=== PATIENT | male | born 1945 | race Caucasian/White ===

== ENCOUNTER → 2016-12-12 | Outpatient (CLI) | payer MEDICARE | END | disposition home or self-care (01) | LOC: LABWHC1 08:55 | PROVIDERS: ATTEND Internal Medicine Endocrinology, Diabetes & Metabolism | DX: E10.9 Type 1 diabetes mellitus without complications (principal) | CPT/HCPCS: 36415; 82947; 84681 ==

== ENCOUNTER → 2017-05-30 | Outpatient (CLI) | payer MEDICARE ==
[2017-05-30 09:25] LABS: CH 29.7; CHCM 33.2; HCT 38.8 % (39.0-53.0); HDW 2.49; MCH 30.1 pg (25.0-35.0); MCHC 33.5 g/dL (31.0-37.0); MCV 89.9 fL (80.0-100.0); Mean Platelet Volume 7.4; RBC 4.31 m/uL (4.30-5.90); RDW 13.7 % (11.5-15.5); WBC 6.2 k/uL (3.8-10.6)
[2017-05-30 10:28] LABS: ALT 28 U/L (21-72); AST 23 U/L (17-59); Alkaline Phosphatase 81 U/L (38-126); Anion Gap 10 mmol/L; Blood Urea Nitrogen 27 mg/dL (9-20); Calcium 9.4 mg/dL (8.4-10.2); Carbon Dioxide 27 mmol/L (22-30); Chloride 100 mmol/L (98-107); Cholesterol 161 mg/dL (<200); Creatine Kinase 176 U/L (55-170); Glucose 199 mg/dL (74-99); HDL Cholesterol 59 mg/dL (40-60); Iron 57 ug/dL (49-181); Non-African American GFR(MDRD) 60 (>60 ml/min/1.73 sqM); Potassium 5.2 mmol/L (3.5-5.1); Sodium 137 mmol/L (137-145); Total Bilirubin 0.6 mg/dL (0.2-1.3); Total Protein 6.5 g/dL (6.3-8.2); Triglycerides 105 mg/dL (<150)
[2017-05-30 10:40] LABS: % Iron Saturation 16.1 % (20-50); Total Iron Binding Capacity 355 ug/dL (261-462)
[2017-05-30 10:50] LABS: Hemoglobin A1C 9.4 % (4.2-6.1)
== END | disposition home or self-care (01) ==
LOC: LABWHC1 08:37
PROVIDERS: ATTEND Nurse Practitioner
DX: E78.5 Hyperlipidemia, unspecified (principal); E10.9 Type 1 diabetes mellitus without complications; D64.89 Other specified anemias
CPT/HCPCS: 36415; 80053; 80061; 82550; 82728; 83036; 83540; 83550; 85027; 86141

== ENCOUNTER → 2017-07-26 | Outpatient (CLI) | payer MEDICARE ==
--- NOTE | 2017-07-29 12:51 | BD ---
EXAMINATION TYPE: MG DEXA axial skeleton. DATE OF EXAM: 07/26/2017 MALE COMPARISON: 06.10.2015 DEXA bone scan. CLINICAL HISTORY: M85.81 KNOWN OSTEOPOROSIS Height: 67 Weight: 174 FRAX RISK QUESTIONS: Alcohol (3 or more units per day): NO Family History (Parent hip fracture): NO Glucocorticoids (More than 3mos): NO (Ex: prednisone, prednisolone, methylprednisolone, dexamethasone, and hydrocortisone). History of Fracture in Adulthood: NO Secondary Osteoporosis: YES 1. Type 1 Diabetes: YES 2. Hyperthyroidism: NO 3. Menopause before 45: NA 4. Malnutrition: NO 5. Chronic liver disease: NO Rheumatoid Arthritis: NO Current Tobacco Use: NO RISK FACTORS HISTORY OF: BROKEN RT ANKLE WITH HARDWARE/SURGICAL...>51 YRS OLD AT TIME Surgery to Spine..LUMBAR SPACER, IN LOWER LUMBAR SPINE When: ALMOST 2 YRS AGO Family History of Osteoporosis: NO Active: BEST HE CAN...USING CANE Diet low in dairy products/other sources of calcium: NO Lost more than 2 inches in height since high school: YES Frequent falls: USING CANE Hyperparathyroidism: NO Adrenal Insufficiency: NO MEDICATIONS: Additional Medications: BP MEDS, ANTIDEPRESSANT, VITAMIN D, STATINS FOR CHOLESTEROL, REFLUX MEDS, INS ULIN Additional History: DIABETIC, HYPERTENSION, ARTHRITIS EXAM MEASUREMENTS: Bone mineral densitometry was performed using the [employer] System. SURGICAL SPACER INTO LUMBAR SPINE.....NO SPINE SCANNED Bone mineral density about the R hip (g/cm2): 0.732 Bone mineral density about the L hip (g/cm2): 0.804 T Score values are as follows: -----R Neck: -2.1 -----L Neck: -1.7 -----R Total: -2.2 -----L Total: -1.6 Bone mineral density has: Decreased -2.4% since study of: 06.10.2015 FRAX%'S: THERE IS A 14.6% CHANCE OF A MAJOR OSTEOPOROTIC FX AND A 4.5% FOR A HIP FX.....PROBABILI TY IN 10 YRS TIME IMPRESSION: Osteopenia (T Score between -2.5 and -1 as noted by T score values remains present in both hips. Bone density is slightly decreased or diminished from prior. There remains slightly increased risk of fra cture and the patient may be considered for treatment. Re-Screen 2-5 years NOTE: T-SCORE=SD OF THE YOUNG ADULT MEAN.
== END ==
LOC: RADBDWWP 14:36
PROVIDERS: ATTEND Nurse Practitioner
DX: M85.851 Other specified disorders of bone density and structure, right thigh (principal); M85.852 Other specified disorders of bone density and structure, left thigh
CPT/HCPCS: 77080

== ENCOUNTER → 2017-09-02 | Outpatient (CLI) | payer MEDICARE ==
[2017-09-02 09:19] LABS: Basophils # (A) 0.1 k/uL (0-0.2); Basophils % (A) 1 %; CH 28.8; CHCM 31.4; Eosinophils # (A) 0.2 k/uL (0-0.7); Eosinophils % (A) 4 %; HCT 37.3 % (39.0-53.0); HDW 2.47; HGB 11.7 gm/dL (13.0-17.5); Luc # (Auto) 0.13; Luc % (Auto) 3; Lymphocytes # (A) 1.3 k/uL (1.0-4.8); Lymphocytes % (A) 29 %; MCH 28.9 pg (25.0-35.0); MCHC 31.4 g/dL (31.0-37.0); MCV 92.2 fL (80.0-100.0); Mean Platelet Volume 7.1; Monocytes # (A) 0.3 k/uL (0-1.0); Monocytes % (A) 7 %; Neutrophils # (A) 2.6 k/uL (1.3-7.7); Neutrophils % (A) 56 %; RBC 4.04 m/uL (4.30-5.90); RDW 13.4 % (11.5-15.5); WBC 4.6 k/uL (3.8-10.6); WBC (Perox) 4.76
[2017-09-02 09:31] LABS: INR 1.1 (<1.2); Partial Thromboplastin Time 24.5 sec (22.0-30.0)
[2017-09-02 11:27] LABS: Hemoglobin A1C 8.5 % (4.2-6.1)
[2017-09-02 13:38] LABS: ALT 31 U/L (21-72); AST 23 U/L (17-59); Alkaline Phosphatase 72 U/L (38-126); Anion Gap 8 mmol/L; Blood Urea Nitrogen 29 mg/dL (9-20); Calcium 9.1 mg/dL (8.4-10.2); Carbon Dioxide 24 mmol/L (22-30); Chloride 103 mmol/L (98-107); Cholesterol 171 mg/dL (<200); Glucose 185 mg/dL (74-99); HDL Cholesterol 52 mg/dL (40-60); Iron 61 ug/dL (49-181); Non-African American GFR(MDRD) 60 (>60 ml/min/1.73 sqM); Potassium 4.8 mmol/L (3.5-5.1); Sodium 135 mmol/L (137-145); Total Bilirubin 0.6 mg/dL (0.2-1.3); Total Protein 6.3 g/dL (6.3-8.2)
[2017-09-02 14:02] LABS: Prostate Specific Antigen 2.41 ng/mL (0.00-4.00)
== END | disposition home or self-care (01) ==
LOC: LABWHC1 08:08
PROVIDERS: ATTEND Internal Medicine
DX: Z00.00 Encounter for general adult medical examination without abnormal findings (principal); E78.5 Hyperlipidemia, unspecified; N18.3 Chronic kidney disease, stage 3 (moderate); K21.0 Gastro-esophageal reflux disease with esophagitis; E10.22 Type 1 diabetes mellitus with diabetic chronic kidney disease; E61.1 Iron deficiency; Z12.5 Encounter for screening for malignant neoplasm of prostate; Z13.29 Encounter for screening for other suspected endocrine disorder; Z01.812 Encounter for preprocedural laboratory examination
CPT/HCPCS: 36415; 80053; 80061; 82306; 82728; 83036; 83540; 84153; 84443; 85025; 85610; 85730

== ENCOUNTER → 2018-01-31 | Outpatient (CLI) | payer MEDICARE ==
[2018-01-31 09:49] LABS: HCT 37.2 % (39.0-53.0); HGB 12.1 gm/dL (13.0-17.5); MCHC 32.4 g/dL (31.0-37.0); MCV 92.6 fL (80.0-100.0); Mean Platelet Volume 7.3; Platelet Count 203 k/uL (150-450); RBC 4.01 m/uL (4.30-5.90); RDW 13.4 % (11.5-15.5); WBC 5.9 k/uL (3.8-10.6)
[2018-01-31 10:04] LABS: INR 1.1 (<1.2); Partial Thromboplastin Time 23.2 sec (22.0-30.0); Prothrombin Time 10.8 sec (9.0-12.0)
[2018-01-31 10:08] LABS: Albumin 3.9 g/dL (3.5-5.0); Calcium 9.1 mg/dL (8.4-10.2); Potassium 5.8 mmol/L (3.5-5.1); Total Bilirubin 0.8 mg/dL (0.2-1.3)
== END | disposition home or self-care (01) ==
LOC: LABWHC1 09:12
PROVIDERS: ATTEND Nurse Practitioner
DX: Z01.812 Encounter for preprocedural laboratory examination (principal); E78.5 Hyperlipidemia, unspecified; D50.9 Iron deficiency anemia, unspecified; Z79.899 Other long term (current) drug therapy
CPT/HCPCS: 36415; 80053; 80061; 82728; 85027; 85610; 85730

== ENCOUNTER → 2018-02-28 | Outpatient (CLI) | payer MEDICARE ==
[2018-02-28 10:33] LABS: Calcium 9.3 mg/dL (8.4-10.2); Potassium 4.5 mmol/L (3.5-5.1)
== END | disposition home or self-care (01) ==
LOC: LABWHC1 09:31
PROVIDERS: ATTEND Internal Medicine
DX: E87.5 Hyperkalemia (principal)
CPT/HCPCS: 36415; 80048